=== PATIENT | female | born 1990 | race Caucasian/White ===

== ENCOUNTER 2017-07-18 09:51 | Emergency (ER) | payer SELFPAY ==
[2017-07-18 09:53] VITALS: BP 121/84; PULSE 115; RESP 20; TEMP 98.7; O2SAT 97
[2017-07-18] MEDS ORDERED: SODIUM CHLORID 0.9% 500 ML INJ 500 ML IV ONE (10:15)
[2017-07-18] MEDS ORDERED: SODIUM CHLORIDE 0.9% FLUSH 10 ML FLUSH IVF PRN (10:15)
--- NOTE | 2017-07-18 10:20 | PD ---
HPI Chief Complaint: Cold / Flu Symptoms Time Seen by Provider: 10:05 Travel History International Travel<30 days: No Contact w/Intl Traveler<30days: No Traveled to known affect area: No History of Present Illness HPI 26-year-old female presents emergency department complaining of difficulty breathing, cold like symptoms, cough, congestion for approximately 2 weeks. Says she recently had a heart valve surgery in April and said she had a 6 week follow-up with a human resources project coordinator but has not done either procedures since then. 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 Patient says that she is having chest pressure located midsternal that increases with laying flat and decreases slightly with sitting up. Says she does feel slightly short of breath as well. Says she has felt fevers and chills and is taking ibuprofen for some of this discomfort without significant improvement. She has not followed up with a human resources project coordinator or her surgeon because of insurance issues. She says that her heart surgeon was Dr. sol and her human resources project coordinator is Dr. Jes nicolas in [place]. She currently does not have a human resources project coordinator. Of note, she cannot move the name of her medications but says she has been out of her medications for approximately 2 weeks. She is also complaining concerned about a lesion in the lower right midsternal region that she started noticing 1 week ago. PFSH Past Medical History Cardiovascular Problems: Yes Social History Tobacco Use: No Allergies-Medications (Allergen,Severity, Reaction): Coded Allergies: No Known Allergies (Unverified , 07/18/17) Reported Meds & Prescriptions Reported Meds & Active Scripts Active Azithromycin 250 Mg Tab 250 Mg PO DIRECTED Take 2 tabs (500 mg) on day 1 then 1 tab daily x 4 days. Reported Gabapentin 300 Mg Cap 300 Mg PO TID Review of Systems Except as stated in HPI: all other systems reviewed are Neg Physical Exam Narrative GENERAL: Well-developed, well-nourished in no apparent distress, wet cough SKIN: Focused skin assessment warm/dry. HEAD: Atraumatic. Normocephalic. EYES: Pupils equal and round. No scleral icterus. No injection or drainage. ENT: No nasal bleeding or discharge. Mucous membranes pink and moist. NECK: Trachea midline. No JVD. CARDIOVASCULAR: Regular rate and rhythm. No murmur appreciated. No rubbing noted RESPIRATORY: No accessory muscle use. Bilateral lower lobe rhonchi GASTROINTESTINAL: Abdomen soft, non-tender, nondistended. Hepatic and splenic margins not palpable. MUSCULOSKELETAL: No obvious deformities. No clubbing. No cyanosis. No edema. NEUROLOGICAL: Awake and alert. No obvious cranial nerve deficits. Motor grossly within normal limits. Normal speech. PSYCHIATRIC: Appropriate mood and affect; insight and judgment normal. Data Data Last Documented VS Vital Signs Date Time Temp Pulse Resp B/P (MAP) Pulse Ox O2 Delivery O2 Flow Rate FiO2 07/18/17 13:49 75 16 99 07/18/17 10:32 Room Air 07/18/17 09:53 98.7 121/84 (96) Orders Orders Electrocardiogram (07/18/17 10:14) Complete Blood Count With Diff (07/18/17 10:14) Comprehensive Metabolic Panel (07/18/17 10:14) Prothrombin Time / Inr (Pt) (07/18/17 10:14) Act Partial Throm Time (Ptt) (07/18/17 10:14) Troponin I (07/18/17 10:14) Ecg Monitoring (07/18/17 10:14) Bilateral Bp Monitoring (07/18/17 10:14) Iv Access Insert/Monitor (07/18/17 10:14) Oximetry (07/18/17 10:14) Sodium Chloride 0.9% Flush (Ns Flush) (07/18/17 10:15) Chest, Pa & Lat (07/18/17 10:14) D-Dimer (07/18/17 10:14) Sodium Chlorid 0.9% 500 Ml Inj (Ns 500 M (07/18/17 10:15) Blood Culture (07/18/17 10:26) Vascular Access Team Consult/P PRN (07/18/17 10:55) Vascular Poc Ultrasound (07/18/17 ) Urinalysis - C+S If Indicated (07/18/17 12:12) Ed Discharge Order (07/18/17 13:36) Labs Laboratory Tests Test 07/18/17 11:00 07/18/17 12:05 Urine Color STRAW Urine Turbidity CLEAR Urine pH 5.5 Urine Specific [place] 1.003 Urine Protein NEG mg/dL Urine Glucose (UA) NEG mg/dL Urine Ketones NEG mg/dL Urine Occult Blood SMALL Urine Nitrite NEG Urine Bilirubin NEG Urine Urobilinogen LESS THAN 2.0 MG/DL Urine Leukocyte Esterase NEG Urine RBC 4 /hpf Urine WBC LESS THAN 1 /hpf Urine Squamous Epithelial Cells 7 /hpf Urine Bacteria OCC /hpf Urine Mucus FEW /lpf Microscopic Urinalysis Comment CULT NOT INDICATED White Blood Count 10.8 TH/MM3 Red Blood Count 4.45 MIL/MM3 Hemoglobin 12.7 GM/DL Hematocrit 36.9 % Mean Corpuscular Volume 83.0 FL Mean Corpuscular Hemoglobin 28.5 PG Mean Corpuscular Hemoglobin Concent 34.3 % Red Cell Distribution Width 15.5 % Platelet Count 197 TH/MM3 Mean Platelet Volume 9.6 FL Neutrophils (%) (Auto) 70.7 % Lymphocytes (%) (Auto) 21.3 % Monocytes (%) (Auto) 6.1 % Eosinophils (%) (Auto) 1.5 % Basophils (%) (Auto) 0.4 % Neutrophils # (Auto) 7.6 TH/MM3 Lymphocytes # (Auto) 2.3 TH/MM3 Monocytes # (Auto) 0.7 TH/MM3 Eosinophils # (Auto) 0.2 TH/MM3 Basophils # (Auto) 0.0 TH/MM3 CBC Comment AUTO DIFF Differential Comment AUTO DIFF CONFIRMED Prothrombin Time 10.7 SEC Prothromb Time International Ratio 1.1 RATIO Activated Partial Thromboplast Time 24.3 SEC D-Dimer Quantitative (PE/DVT) 0.20 MG/L FEU Blood Urea Nitrogen 12 MG/DL Creatinine 0.60 MG/DL Random Glucose 80 MG/DL Total Protein 7.3 GM/DL Albumin 3.7 GM/DL Calcium Level 8.6 MG/DL Alkaline Phosphatase 100 U/L Aspartate Amino Transf (AST/SGOT) 25 U/L Alanine Aminotransferase (ALT/SGPT) 10 U/L Total Bilirubin 0.3 MG/DL Sodium Level 142 MEQ/L Potassium Level 4.1 MEQ/L Chloride Level 108 MEQ/L Carbon Dioxide Level 24.6 MEQ/L Anion Gap 9 MEQ/L Estimat Glomerular Filtration Rate 123 ML/MIN Troponin I LESS THAN 0.02 NG/ML MDM Medical Decision Making Medical Screen Exam Complete: Yes Emergency Medical Condition: Yes Differential Diagnosis Pericarditis, pericardial effusion, ACS, PNA Narrative Course 26-year-old female presents emergency department complaining of difficulty breathing, cold like symptoms, cough, congestion for approximately 2 weeks. Says she recently had a heart valve surgery in April and said she had a 6 week follow-up with a human resources project coordinator but has not done either procedures since then. 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 Patient says that she is having chest pressure located midsternal that increases with laying flat and decreases slightly with sitting up. Says she does feel slightly short of breath as well. Says she has felt fevers and chills and is taking ibuprofen for some of this discomfort without significant improvement. She has not followed up with a human resources project coordinator or her surgeon because of insurance issues. She says that her heart surgeon was Dr. sol and her human resources project coordinator is Dr. Jes nicolas in [place]. She currently does not have a human resources project coordinator. Of note, she cannot move the name of her medications but says she has been out of her medications for approximately 2 weeks. She is also complaining concerned about a lesion in the lower right midsternal region that she started noticing 1 week ago. Vital signs stable. Last Impressions Chest X-Ray 07/18/17 1014 Signed Impressions: CONCLUSION: No acute pulmonary infiltrates. CBC & BMP Diagram 07/18/17 12:05 Total Protein 7.3, Albumin 3.7, Calcium Level 8.6, Alkaline Phosphatase 100, Aspartate Amino Transf (AST/SGOT) 25, Alanine Aminotransferase (ALT/SGPT) 10, Total Bilirubin 0.3 Cardiac enzymes negative. D-dimer negative. Patient be discharged with azithromycin for likely bronchitis. She strongly advised follow-up with a human resources project coordinator and primary care physician. Return for worsening symptoms. 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 Follow-up with your human resources project coordinator. If your symptoms persist or worsen return to the emergency department. Scripts Azithromycin (Azithromycin) 250 Mg Tab 250 MG PO DIRECTED for Infection, #6 TAB 0 Refills Take 2 tabs (500 mg) on day 1 then 1 tab daily x 4 days. Prov: Varun Polanco MD 07/18/17 Disposition: 01 DISCHARGE HOME Condition: Stable Pam Myers July 18, 2017 10:20
[2017-07-18 10:32] VITALS: O2SAT 90
[2017-07-18] MEDS ORDERED: GABA300C5 PO (10:48)
--- NOTE | 2017-07-18 11:47 | RADRPT ---
EXAM DATE: 07/18/2017 11:35 AM EDT AGE/SEX: 26 years / Female INDICATIONS: Chest pain. CLINICAL DATA: This is the patient's initial encounter. Patient reports that signs and symptoms have been present for 2 weeks and indicates a pain score of 8/10. MEDICAL/SURGICAL HISTORY: Hypertension. CABG. COMPARISON: No prior [place] exams available for comparison. FINDINGS: PA and lateral views of the chest demonstrate the lungs to be symmetrically aerated without evidence of mass, infiltrate or effusion. The cardiomediastinal contours are unremarkable. Evidence of previou s cardiothoracic surgery. Osseous structures are intact. CONCLUSION: No acute pulmonary infiltrates. Electronically signed by: Shyam Valdez MD 07/18/2017 11:46 AM EDT
[2017-07-18 12:45] LABS: AUTOMATED NEUTROPHIL # 7.6 TH/MM3 (1.8-7.7); BASOPHIL % 0.4 % (0.0-2.0); EOSINOPHIL # 0.2 TH/MM3 (0-0.4); EOSINOPHIL % 1.5 % (0.0-4.0); HEMATOCRIT 36.9 % (35.0-46.0); HEMOGLOBIN 12.7 GM/DL (11.6-15.3); LYMPH % 21.3 % (9.0-44.0); LYMPHOCYTE # 2.3 TH/MM3 (1.0-4.8); MEAN CORPUSCULAR HEMOGLOBIN 28.5 PG (27.0-34.0); MEAN CORPUSCULAR HGB CONC 34.3 % (32.0-36.0); MEAN PLATELET VOLUME 9.6 FL (7.0-11.0); MONO % 6.1 % (0.0-8.0); MONOCYTE # 0.7 TH/MM3 (0-0.9); NEUT % 70.7 % (16.0-70.0); PLATELET COUNT 197 TH/MM3 (150-450); RED BLOOD COUNT 4.45 MIL/MM3 (4.00-5.30); RED CELL DISTRIBUTION WIDTH 15.5 % (11.6-17.2); WHITE BLOOD COUNT 10.8 TH/MM3 (4.0-11.0)
[2017-07-18 12:48] LABS: BACTERIA, URINE OCC /hpf; BILIRUBIN, URINE NEG (NEG); BLOOD, URINE SMALL (NEG); GLUCOSE,URINE NEG (NEG); KETONE, URINE NEG (NEG); MUCUS URINE FEW /lpf (OCC); NITRITE,URINE NEG (NEG); PH, URINE 5.5 (5.0-8.5); SQUAMOUS EPITHELIAL CELL URINE 7 /hpf (0-5); URINE COLOR STRAW (YELLW/STRAW); URINE LEUKOCYTE ESTERASE NEG (NEG)
[2017-07-18 13:05] LABS: ALBUMIN 3.7 GM/DL (3.4-5.0); AST (GOT) 25 U/L (15-37); BICARBONATE 24.6 MEQ/L (21.0-32.0); BLOOD UREA NITROGEN 12 MG/DL (7-18); CALCIUM 8.6 MG/DL (8.5-10.1); CHLORIDE 108 MEQ/L (98-107); GLOMERULAR FILTRATION RATE 123 ML/MIN (>89); GLUCOSE,RANDOM 80 MG/DL (74-106); SODIUM (NA) 142 MEQ/L (136-145)
[2017-07-18 13:06] LABS: INTERNATIONAL NORMALIZED RATIO 1.1 RATIO; PROTHROMBIN TIME - PATIENT 10.7 SEC (9.8-11.6)
[2017-07-18 13:09] LABS: ALKALINE PHOSPHATASE 100 U/L (45-117); ALT (GPT) 10 U/L (10-53); D-DIMER 0.2 MG/L FEU (0.00-0.50); TOTAL BILIRUBIN ADULT 0.3 MG/DL (0.2-1.0); TOTAL PROTEIN 7.3 GM/DL (6.4-8.2); TROPONIN I LESS THAN 0.02 NG/ML (0.02-0.05)
[2017-07-18] MEDS ORDERED: AZIT250T3 PO (13:31)
--- NOTE | 2017-07-18 13:50 | PD ---
Data Data Last Documented VS Vital Signs Date Time Temp Pulse Resp B/P (MAP) Pulse Ox O2 Delivery O2 Flow Rate FiO2 07/18/17 10:32 90 Room Air 07/18/17 10:32 20 07/18/17 09:53 98.7 115 121/84 (96) Orders Orders Electrocardiogram (07/18/17 10:14) Complete Blood Count With Diff (07/18/17 10:14) Comprehensive Metabolic Panel (07/18/17 10:14) Prothrombin Time / Inr (Pt) (07/18/17 10:14) Act Partial Throm Time (Ptt) (07/18/17 10:14) Troponin I (07/18/17 10:14) Ecg Monitoring (07/18/17 10:14) Bilateral Bp Monitoring (07/18/17 10:14) Iv Access Insert/Monitor (07/18/17 10:14) Oximetry (07/18/17 10:14) Sodium Chloride 0.9% Flush (Ns Flush) (07/18/17 10:15) Chest, Pa & Lat (07/18/17 10:14) D-Dimer (07/18/17 10:14) Sodium Chlorid 0.9% 500 Ml Inj (Ns 500 M (07/18/17 10:15) Blood Culture (07/18/17 10:26) Vascular Access Team Consult/P PRN (07/18/17 10:55) Vascular Poc Ultrasound (07/18/17 ) Urinalysis - C+S If Indicated (07/18/17 12:12) Ed Discharge Order (07/18/17 13:36) Labs Laboratory Tests Test 07/18/17 11:00 07/18/17 12:05 Urine Color STRAW Urine Turbidity CLEAR Urine pH 5.5 Urine Specific [place] 1.003 Urine Protein NEG mg/dL Urine Glucose (UA) NEG mg/dL Urine Ketones NEG mg/dL Urine Occult Blood SMALL Urine Nitrite NEG Urine Bilirubin NEG Urine Urobilinogen LESS THAN 2.0 MG/DL Urine Leukocyte Esterase NEG Urine RBC 4 /hpf Urine WBC LESS THAN 1 /hpf Urine Squamous Epithelial Cells 7 /hpf Urine Bacteria OCC /hpf Urine Mucus FEW /lpf Microscopic Urinalysis Comment CULT NOT INDICATED White Blood Count 10.8 TH/MM3 Red Blood Count 4.45 MIL/MM3 Hemoglobin 12.7 GM/DL Hematocrit 36.9 % Mean Corpuscular Volume 83.0 FL Mean Corpuscular Hemoglobin 28.5 PG Mean Corpuscular Hemoglobin Concent 34.3 % Red Cell Distribution Width 15.5 % Platelet Count 197 TH/MM3 Mean Platelet Volume 9.6 FL Neutrophils (%) (Auto) 70.7 % Lymphocytes (%) (Auto) 21.3 % Monocytes (%) (Auto) 6.1 % Eosinophils (%) (Auto) 1.5 % Basophils (%) (Auto) 0.4 % Neutrophils # (Auto) 7.6 TH/MM3 Lymphocytes # (Auto) 2.3 TH/MM3 Monocytes # (Auto) 0.7 TH/MM3 Eosinophils # (Auto) 0.2 TH/MM3 Basophils # (Auto) 0.0 TH/MM3 CBC Comment AUTO DIFF Differential Comment AUTO DIFF CONFIRMED Prothrombin Time 10.7 SEC Prothromb Time International Ratio 1.1 RATIO Activated Partial Thromboplast Time 24.3 SEC D-Dimer Quantitative (PE/DVT) 0.20 MG/L FEU Blood Urea Nitrogen 12 MG/DL Creatinine 0.60 MG/DL Random Glucose 80 MG/DL Total Protein 7.3 GM/DL Albumin 3.7 GM/DL Calcium Level 8.6 MG/DL Alkaline Phosphatase 100 U/L Aspartate Amino Transf (AST/SGOT) 25 U/L Alanine Aminotransferase (ALT/SGPT) 10 U/L Total Bilirubin 0.3 MG/DL Sodium Level 142 MEQ/L Potassium Level 4.1 MEQ/L Chloride Level 108 MEQ/L Carbon Dioxide Level 24.6 MEQ/L Anion Gap 9 MEQ/L Estimat Glomerular Filtration Rate 123 ML/MIN Troponin I LESS THAN 0.02 NG/ML [facility] Supervised Visit with DONA: Yes Narrative Course The history, exam, and medical decision-making in the associated mid-level provider note were completed with my assistance. I reviewed and agree with the findings presented. I attest that I had a [id number] encounter with the patient on the same day, and personally performed and documented my assessment and findings in the medical record. *My assessment and Findings: 26-year-old woman, presents with cough cold symptoms with fever and flulike illness. History of recent treatment for endocarditis. She had her tricuspid valve repaired with metal ring reinforcement. She tolerated well. This is a March for some while since then. No recurrent IV drug use. 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 No definite sick contacts. Looks well. Some coarse congestion on exam. Looks otherwise well. Will resend blood cultures for risk of endocarditis. Low suspicion. Suspect bronchitis. Recommend treatment. She has been off medications. She is not on a blood thinner or water pill. Sounds like a beta-nicole and Neurontin and not sure what the other ones are. 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 If your symptoms persist or worsen return to the emergency department. Scripts Azithromycin (Azithromycin) 250 Mg Tab 250 MG PO DIRECTED for Infection, #6 TAB 0 Refills Take 2 tabs (500 mg) on day 1 then 1 tab daily x 4 days. Prov: Varun Polanco MD 07/18/17 Disposition: 01 DISCHARGE HOME Condition: Stable Varun Polanco MD July 18, 2017 13:50
--- NOTE | 2017-07-19 13:45 | EKG ---
Date Performed: 07/18/2017 Time Performed: 10:28:55 PTAGE: 26 years EKG: Sinus rhythm WITHIN NORMAL LIMITS FOR AGE BORDERLINE ECG NO PREVIOUS TRACING DOCTOR: Robin Nunes Interpretating Date/Time 07/19/2017 13:43:51
== END 2017-07-18 13:51 | disposition home or self-care (01) ==
LOC: NEPD 09:51
DX: J40 Bronchitis, not specified as acute or chronic (principal)
CPT/HCPCS: 71046; 80053; 81001; 84484; 85025; 85379; 85610; 85730; 87040; 87205; 93005; 99285; J7040